=== PATIENT | female | born 1955 | race Caucasian/White ===

== ENCOUNTER 2017-03-31 08:26 | Emergency (ER) | payer OTHER ==
[2017-03-31 08:38] VITALS: BP 136/95; PULSE 68; RESP 20; TEMP 97.7; O2SAT 94
[2017-03-31] MEDS ORDERED: IBUPROFEN 600 MG TAB PO ONE (09:15)
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
== END 2017-03-31 11:07 | disposition home or self-care (01) ==
DX: S09.90XA Unspecified injury of head, initial encounter (principal); S60.222A Contusion of left hand, initial encounter; S16.1XXA Strain of muscle, fascia and tendon at neck level, initial encounter; M62.830 Muscle spasm of back; V49.29XA Unspecified car occupant injured in collision with other motor vehicles in nontraffic accident, initial encounter
CPT/HCPCS: L3908

== ENCOUNTER 2018-06-27 12:03 | Observation (INO) | payer OTHER ==
[2018-06-27 13:16] LABS: PLATELET COUNT 251 10^3/uL (150-400)
[2018-06-27] MEDS ORDERED: NS 500 ML IV ONE (13:46)
--- NOTE | 2018-06-27 13:55 | EDPHY ---
H & P Time Seen by Provider: 06/27/18 13:31 HPI/ROS: CHIEF COMPLAINT: Syncope HISTORY OF PRESENT ILLNESS: Patient is a 62-year-old female with a history of vertigo in here issues who presents emergency department after having a syncopal episode x3. Patient was at work when she felt as though she may pass out. Her coworkers lowered her to the floor with no trauma. Again when she got up she had another syncopal episode. She was again lowered to the floor thought trauma. Patient's family came to pick her up and she again had a syncopal episode. She had no trauma. Patient denies any headache. She has been having weakness earlier today. No chest pain. No cough or shortness of breath. No focal weakness or numbness. Patient does report hot flashes for which she has seen a nail technician teacher recently. It was recommended by her ENT doctor to have an MRI for ongoing dizziness. REVIEW OF SYSTEMS: 10 systems were reveiwed and are negative with the exception of the elements mentioned in the history of present illness. Past Medical/Surgical History: Includes hearing loss, vertigo, possible TIA Past surgical history: Orthopedic surgery Social history: The patient smokes marijuana. Smoking Status: Never smoked Physical Exam: Vitals noted GENERAL: Well-appearing, in no acute distress, alert. HEENT: Eyes normal to inspection, normal pharynx, no signs of dehydration. Decreased hearing. NECK: Normal, supple. RESPIRATORY: Clear to auscultation bilaterally, no rales, rhonchi or wheezing. CVS: Regular rate and rhythm, no rubs, murmurs, or gallops. ABDOMEN: Soft, nontender, nondistended, no organomegaly. BACK: Normal to inspection, no CVA tenderness. SKIN: Normal color, no rash, warm, dry. No pallor. EXTREMITIES: No pedal edema, no calf tenderness, no Homans sign or cords, no joint swelling. NEURO/PSYCH: Higher functions: Alert and Oriented x3. Normal speech and cognition. Normal mood and affect. Cranial nerves: Normal as tested. Cerebellar: Normal as tested. Good finger to nose, good [id number], normal gait. Peripheral exam: Normal motor exam. Normal sensation. Normal reflexes. Constitutional: Initial Vital Signs Temperature (C) 36.6 C 06/27/18 12:11 Heart Rate 62 06/27/18 12:11 Respiratory Rate 18 06/27/18 12:11 Blood Pressure 153/94 H 06/27/18 12:11 O2 Sat (%) 93 06/27/18 12:11 O2 Delivery Mode Room Air Allergies/Adverse Reactions: No Known Allergies Allergy (Verified 06/27/18 12:05) Home Medications: Medication Instructions Recorded Hydrocodone/APAP 5/325 [[place] 1 tab PO Q4H PRN #7 tab 03/31/17 5/325] Medical Decision Making - Diagnostics Imaging Results: Imaging Impressions Head CT 06/27/18 13:46 Impression: 1. No acute intracranial process. 2. Dental disease with periapical cavities in the maxillary molars. 3. Paranasal sinus disease. Findings and recommendations discussed with ACE MERRITT at 1427 hour, . ED Course/Re-evaluation: The in the emergency department I discussed possible etiologies with the patient. I answered all her questions. IV was placed. Laboratory studies were pain. Patient was given normal saline 500 mL IV for hydration. EKG and head CT were ordered. I discussed this with the patient and she consented. The CBC and chemistry unremarkable. EKG shows normal sinus rhythm, normal rate, normal axis, normal intervals. There are no ST or T-wave abnormalities. EKG is normal as interpreted by me. Head CT: Please refer the dictated report. There is no intracranial process causing syncope. Sinus disease. I discussed plan with the patient and answered all her questions. She agrees with the plan. I discussed the case with Dr. Michelle Crawford. She will admit the patient. Differential Diagnosis: My differential includes but not limited to ACS, acute NM, dysrhythmia, electrolyte abnormality, sugar abnormality, dehydration, ischemic CVA, hemorrhagic CVA, dissection, aneurysm, vertigo - Data Points Laboratory Results: Laboratory Results 06/27/18 12:40 06/27/18 12:40 06/27/18 06/27/18 12:40 12:40 WBC 9.33 10^3/uL 10^3/uL (3.80-9.50) RBC 4.87 10^6/uL 10^6/uL (4.18-5.33) Hgb 15.6 g/dL g/dL (12.6-16.3) Hct 46.0 % % (38.0-47.0) MCV 94.5 fL fL (81.5-99.8) MCH 32.0 pg pg (27.9-34.1) MCHC 33.9 g/dL g/dL (32.4-36.7) RDW 12.1 % % (11.5-15.2) Plt Count 251 10^3/uL 10^3/uL (150-400) MPV 10.1 fL fL (8.7-11.7) Neut % (Auto) 55.1 % % (39.3-74.2) Lymph % (Auto) 36.9 % % (15.0-45.0) [place] % (Auto) 5.9 % % (4.5-13.0) Eos % (Auto) 1.3 % % (0.6-7.6) Baso % (Auto) 0.5 % % (0.3-1.7) Nucleat RBC Rel Count 0.0 % % (0.0-0.2) Absolute Neuts (auto) 5.14 10^3/uL 10^3/uL (1.70-6.50) Absolute Lymphs (auto) 3.44 10^3/uL H 10^3/uL (1.00-3.00) Absolute Monos (auto) 0.55 10^3/uL 10^3/uL (0.30-0.80) Absolute Eos (auto) 0.12 10^3/uL 10^3/uL (0.03-0.40) Absolute Basos (auto) 0.05 10^3/uL 10^3/uL (0.02-0.10) Absolute Nucleated RBC 0.00 10^3/uL 10^3/uL (0-0.01) Immature Gran % 0.3 % % (0.0-1.1) Immature Gran # 0.03 10^3/uL 10^3/uL (0.00-0.10) Sodium 139 mEq/L mEq/L (135-145) Potassium 4.2 mEq/L mEq/L (3.5-5.2) Chloride 110 mEq/L mEq/L (97-110) Carbon Dioxide 22 mEq/l mEq/l (22-31) Anion Gap 7 mEq/L mEq/L (6-14) BUN 12 mg/dL mg/dL (7-23) Creatinine 0.9 mg/dL mg/dL (0.6-1.0) Estimated GFR > 60 Glucose 87 mg/dL mg/dL (70-100) Calcium 9.4 mg/dL mg/dL (8.5-10.4) Medications Given: Discontinued Medications Sodium Chloride (Ns) 500 mls @ 1,000 mls/hr IV EDNOW ONE PRN Reason: Protocol Stop: 06/27/18 14:15 Last Admin: 06/27/18 13:53 Dose: 500 mls Departure - Departure Disposition: [facility] Inpatient Acute Clinical Impression: Syncope Qualifiers: Syncope type: unspecified Qualified Code(s): R55 - Syncope and collapse Condition: Good Instructions: Syncope (ED) Referrals: NONE *PRIMARY CARE P,. [Primary Care Provider] - As per Instructions
[2018-06-27] MEDS ORDERED: HYDROCODONE/APAP 5/325 TAB PO PRN (15:52)
[2018-06-27] MEDS ORDERED: LORazepam 0.5 MG TAB PO PRN (15:52)
[2018-06-27] MEDS ORDERED: HYDROmorphONE/DILAUDID 1 MG/ML INJ IVP PRN (15:52)
[2018-06-27] MEDS ORDERED: LORazepam 2 MG/ML INJ IVP PRN (15:52)
[2018-06-27] MEDS ORDERED: oxyCODONE IR 5 MG TAB PO PRN (15:52)
[2018-06-27] MEDS ORDERED: ONDANSETRON 4 MG/2 ML VIAL IVP PRN (15:52)
[2018-06-27] MEDS ORDERED: ACETAMINOPHEN 325 MG TAB PO PRN (15:52)
[2018-06-27] MEDS ORDERED: ONDANSETRON DISINTEGRATING 4 MG TAB PO PRN (15:52)
[2018-06-27] MEDS ORDERED: PROMETHAZINE HCL 25 MG/ML INJ IVP PRN (15:52)
--- NOTE | 2018-06-27 16:57 | PDGENHP ---
History and Physical - Chief Complaint syncope - History of Present Illness 62 yo F with PMH that includes TIA and hearing loss, tinnitus and recurrent vertigo being worked up at ENT who presents with 3 syncopal episodes today. 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 A coworker apparently caught her. She had a second syncopal episode in similar circumstances at work shortly after and then a third when her boyfriend came to get her and was walking her out. She did not have any injuries with any of these episodes. She has had a syncopal episode previously many years ago worked up at another hospital she believes. She has other health complaints recently that she has not sought care for as she has financial concerns around her health care. She has been having worsening balance issues, that she in part relates to her vertigo and tinnitus but sounds like it is always there whether the vertigo is present or not. She has been having progressive hearing loss and has been worked up by ENT for possible Meniere's and has been asked to get both a brain MRI and a neurology consult but has not done that due to finances. She also reports several episodes per day of 'hot flashes' which she describes as getting very hot, very sweaty. She has these episodes at night and soaks the bed with sweat. This happens every day, several times a day. She states she was seen by [employer] who told her that her hormone levels were normal and they were not sure why she is having hot flashes/sweats. She has lost 30 pounds in the last 8 months, but at least some was intentional and some was related to sxs she was having prior to having her GB removed . History Information - Allergies/Home Medication List Allergies/Adverse Reactions: No Known Allergies Allergy (Verified 06/27/18 12:05) Home Medications: NK [No Known Home Meds] 06/27/18 [Last Taken Unknown] I have personally reviewed and updated: family history, medical history, social history, surgical history - Past Medical History TIA Additional medical history: vertigo. tinnitus. hearing loss. gait instability - Surgical History Reports: cholecystectomy Additional surgical history: ankle surgery. appy - Family History Positive for: non-pertinent (unknown--patient adopted) - Social History Smoking Status: Never smoked Alcohol Use: None Drug Use: Marijuana (daily) Review of Systems Review of Systems: ROS: 10pt was reviewed & negative except for what was stated in HPI & below Physical Exam Physical Exam: Temp Pulse Resp BP Pulse Ox 36.8 C 70 16 120/101 H 94 06/27/18 16:28 06/27/18 16:28 06/27/18 16:28 06/27/18 16:28 06/27/18 16:28 Constitutional: no apparent distress, appears nourished Eyes: PERRL, anicteric sclera Ears, Nose, Mouth, Throat: moist mucous membranes, hearing normal Cardiovascular: regular rate and rhythym, no murmur, rub, or gallop, No edema Respiratory: no respiratory distress, no rales or rhonchi Gastrointestinal: normoactive bowel sounds, soft, non-tender abdomen Genitourinary: no bladder tenderness Skin: warm, normal color Musculoskeletal: full muscle strength, no muscle tenderness Neurologic: AAOx3, CN II-XII Intact, No weakness, No numbness Psychiatric: interacting appropriately, not anxious, not encephalopathic Lab Data & Imaging Review 06/27/18 12:40 06/27/18 12:40 WBC 9.33 10^3/uL (3.80-9.50) 06/27/18 12:40 RBC 4.87 10^6/uL (4.18-5.33) 06/27/18 12:40 Hgb 15.6 g/dL (12.6-16.3) 06/27/18 12:40 Hct 46.0 % (38.0-47.0) 06/27/18 12:40 MCV 94.5 fL (81.5-99.8) 06/27/18 12:40 MCH 32.0 pg (27.9-34.1) 06/27/18 12:40 MCHC 33.9 g/dL (32.4-36.7) 06/27/18 12:40 RDW 12.1 % (11.5-15.2) 06/27/18 12:40 Plt Count 251 10^3/uL (150-400) 06/27/18 12:40 MPV 10.1 fL (8.7-11.7) 06/27/18 12:40 Neut % (Auto) 55.1 % (39.3-74.2) 06/27/18 12:40 Lymph % (Auto) 36.9 % (15.0-45.0) 06/27/18 12:40 [place] % (Auto) 5.9 % (4.5-13.0) 06/27/18 12:40 Eos % (Auto) 1.3 % (0.6-7.6) 06/27/18 12:40 Baso % (Auto) 0.5 % (0.3-1.7) 06/27/18 12:40 Nucleat RBC Rel Count 0.0 % (0.0-0.2) 06/27/18 12:40 Absolute Neuts (auto) 5.14 10^3/uL (1.70-6.50) 06/27/18 12:40 Absolute Lymphs (auto) 3.44 10^3/uL (1.00-3.00) H 06/27/18 12:40 Absolute Monos (auto) 0.55 10^3/uL (0.30-0.80) 06/27/18 12:40 Absolute Eos (auto) 0.12 10^3/uL (0.03-0.40) 06/27/18 12:40 Absolute Basos (auto) 0.05 10^3/uL (0.02-0.10) 06/27/18 12:40 Absolute Nucleated RBC 0.00 10^3/uL (0-0.01) 06/27/18 12:40 Immature Gran % 0.3 % (0.0-1.1) 06/27/18 12:40 Immature Gran # 0.03 10^3/uL (0.00-0.10) 06/27/18 12:40 Sodium 139 mEq/L (135-145) 06/27/18 12:40 Potassium 4.2 mEq/L (3.5-5.2) 06/27/18 12:40 Chloride 110 mEq/L (97-110) 06/27/18 12:40 Carbon Dioxide 22 mEq/l (22-31) 06/27/18 12:40 Anion Gap 7 mEq/L (6-14) 06/27/18 12:40 BUN 12 mg/dL (7-23) 06/27/18 12:40 Creatinine 0.9 mg/dL (0.6-1.0) 06/27/18 12:40 Estimated GFR > 60 06/27/18 12:40 Glucose 87 mg/dL (70-100) 06/27/18 12:40 Calcium 9.4 mg/dL (8.5-10.4) 06/27/18 12:40 Total Bilirubin 0.4 mg/dL (0.1-1.4) 06/27/18 12:40 Conjugated Bilirubin 0.2 mg/dL (0.0-0.5) 06/27/18 12:40 Unconjugated Bilirubin 0.2 mg/dL (0.0-1.1) 06/27/18 12:40 AST 23 IU/L (14-46) 06/27/18 12:40 ALT 28 IU/L (9-52) 06/27/18 12:40 Alkaline Phosphatase 93 IU/L (38-126) 06/27/18 12:40 Lactate Dehydrogenase 620 IU/L (313-618) H 06/27/18 12:40 Troponin I 0.013 ng/mL (0.000-0.034) 06/27/18 12:40 Total Protein 7.3 g/dL (6.3-8.2) 06/27/18 12:40 Albumin 4.4 g/dL (3.5-5.0) 06/27/18 12:40 Visualized and Interpreted imaging results: Yes Interpretation: head CT: no acute findings Visualized and Interpreted EKG results: Yes EKG Interpretation: Positive for: normal sinsus rhythm Assessment & Plan Assessment: Syncope (Acute) 62 yo F with PMH of hearing loss, vertigo, balance issues and prior TIA presenting with syncope x 3 # syncope: with several back to back events, per patient all without warning and all without injury. Unusual history, initial w/u normal however patient with multiple complaints of chronic issues that are of uncertain etiology. Will monitor on tele, serial trops and echocardiogram in the am. # gait instability/vertigo/hearing loss/taste change: patient with a series of complaints that have been worked up partially by ENT, their records were reviewed, they have had concerns for menieres versus other primary neurologic issue and have recommended brain MRI and neuro consult as next diagnostic steps which we will obtain in house. Will ask for pt/ot to evaluate for safety with ambulation. # 'hot flashes'/night sweats: patient describing daily to several time per day episodes of soaking hot flashes and night sweats, has had some associated weight loss, ? undiagnosed malignancy versus endocrine or infectious disorder versus neurologic as above versus anxiety. Has been seen by RN IMMUNOLOGY, reviewed reports, sounds as if this is not related with post menopausal sxs per their evaluation. No other suggestion of subacute infection and patient denies risk factors for TB/HIV. Pheo or carcinoid tumor could be consideration, but no report of headache or diarrhea. Will check LDH, TSH, CXR and place a TB test. Monitor for fever with symptoms. Depending on initial w/u could consider further IP testing versus defer to op f/u (her follow up has been poor however0 # hx of TIA # observation status Patient new to my care. Old records reviewed and summarized as above. Care plan reviewed with ER doctor as above.
[2018-06-27] MEDS ORDERED: TUBERCULIN (PPD) 5 TU/0.1 ML SYRINGE ID ONE (17:24)
--- NOTE | 2018-06-27 20:51 | CPEKG ---
Test Reason : OPEN Blood Pressure : / mmHG Vent. Rate : 064 BPM Atrial Rate : 064 BPM P-R Int : 221 ms QRS Dur : 097 ms QT Int : 418 ms P-R-T Axes : -12 009 047 degrees QTc Int : 432 ms Sinus rhythm Prolonged FL interval Abnormal R-wave progression, early transition Confirmed by Natalie Oates ([id number]) on 06/27/2018 8:51:24 PM Referred By: Confirmed By:Natalie Oates
[2018-06-27] MEDS ORDERED: GADOBUTROL 10 ML VIAL IVP ONE (21:15)
[2018-06-28 05:10] LABS: PLATELET COUNT 232 10^3/uL (150-400)
--- NOTE | 2018-06-28 09:31 | HOSPPROG ---
Hospitalist Progress Note Assessment/Plan: 62 yo F with PMH of hearing loss, vertigo, balance issues and prior TIA presenting with syncope x 3. Reviewed her care w Dr Mcdermott. # syncope -reviewed quality assurance intern, she has been in sinus rhythm -trop negative -echo pending -orthostatics stable # gait instability -MRI shows nothing acute -has been seen by ENT- ? Mnire's -neurology didn't note anything acute -PT and OT to see *hot flashes, night sweats -could get further w/u for carcinoid or pheo (MRI doesn't indicate this) -post menopausal symptoms could be causing this, she has seen ADMINISTRATIVE SUPPORT SPECIALIST who says this is unlikely -TB skin test ordered and pending -TSH stable at 1.7 -LDH is minimally elevated *hx of TIA *plan: f/u with Echo, will give her names for a PCP and for a learning support specialist to f/u with Subjective: Laureen is very concerned about the persistent flushing and sweating. Objective: Vital Signs Temp Pulse Resp BP Pulse Ox 36.6 C 66 16 137/84 H 95 06/28/18 07:58 06/28/18 07:58 06/28/18 07:58 06/28/18 07:58 06/28/18 07:58 Laboratory Results 06/28/18 04:50 06/28/18 04:50 - Physical Exam Constitutional: no apparent distress, uncomfortable Eyes: PERRL Ears, Nose, Mouth, Throat: hearing normal Cardiovascular: regular rate and rhythym Respiratory: no respiratory distress Gastrointestinal: normoactive bowel sounds Skin: warm, other (flushed) Musculoskeletal: full muscle strength Neurologic: AAOx3 Psychiatric: interacting appropriately ICD10 Worksheet Patient Problems: Problems Problem Status Onset Syncope Acute
[2018-06-28 12:04] VITALS: BP 130/76
--- NOTE | 2018-06-28 13:24 | ECHO ---
[email or web address] [address] [address] Main: [phone] Fax: Transthoracic Echocardiogram Name: MAGALI ANDRADE MR#: [id number] Study Date: 06/28/2018 Study Time: 10:40 AM Date of : 1955 Age: 62 year(s) Height: 160 cm (63 in.) Weight: 81.65 kg (180 lb.) BSA: 1.85 m2 Gender: Female Examination: Echo Indication: Recurrent Syncope Image Quality: Contrast: Requested by: Michelle Crawford BP: 137 mmHg/84 mmHg Heart Rate: Rhythm: Normal sinus rhythm Indication: Recurrent Syncope Procedure Staff Door Captain: Terrell Milner RDCS Reading Physician: Jorge Stinson MD Requesting Provider: Conclusions: Normal size left ventricle. Normal global systolic LV function. EF is 77 %. No regional wall motion abnormality. Normal diastolic LV function. There are no significant valvular abnormalities. Measurements: Chambers Valvular Assessment AV/MV Valvular Assessment TV/PV Normal Normal Normal Name Value Range Name Value Range Name Value Range Ao Juliet (MM): 2.5 cm (2.2 cm-3.7 AV Vmax: 1.37 m/s (1 m/s-1.7 PV Vmax: 1.05 m/s (0.6 m/s-0.9 cm) m/s) m/s) IVSd (2D): 0.8 cm (0.6 cm-1.1 AV maxP mmHg ( - ) PV PGmax: 4 mmHg ( - ) cm) LVOT Vmax: 0.97 m/s (0.7 m/s-1.1 LVDd (2D): 4.9 cm (3.9 cm-5.3 m/s) cm) MV E Vmax: 0.63 m/s ( - ) LVDs (2D): 2.6 cm (2.1 cm-4 MV A Vmax: 0.80 m/s ( - ) cm) MV E/A: 0.79 ( - ) LVPWd (2D): 0.9 cm ( - ) LVEF (2D): 77 (>=54 %) RVDd(2D): 2.4 cm (1.9 cm-3.8 cmmm) Continued Measurements: Chambers Valvular Assessment AV/MV Name Value Name Value LADs Lon.0 cm MV E' Septal: 0.05 m/s LA Area: 11.7 cm2 MV E/E' Septal: 11.90 Patient: MAGALI ANDRADE Study Date: 06/28/2018 Page 1 of 2 10:40 AM LA Volume: 36 ml MV E/E' Lateral: 8.90 LA Volume Index: 19.5 ml/m2 Findings: Left Ventricle: Normal size left ventricle. No LV hypertrophy. Normal global systolic LV function. EF is 77 %. No regional wall motion abnormality. Normal diastolic LV function. Right Ventricle: Normal size right ventricle. Normal RV function. Left Atrium: The left atrium is normal in size. Right Atrium: The right atrium is normal in size. Mitral Valve: The mitral valve is normal in appearance and function. There is no mitral valve regurgitation. Aortic Valve: The aortic valve is normal in appearance and function. The aortic valve is tri-leaflet. Tricuspid Valve: The tricuspid valve appears normal. Pulmonic Valve: The pulmonic valve is normal in appearance and function. Aorta: The aorta is normal. Pericardium: No pericardial effusion. (No Signature Object) Patient: MAGALI ANDRADE Study Date: 06/28/2018 Page 2 of 2 10:40 AM [id number]
--- NOTE | 2018-06-28 15:57 | GDS ---
DISCHARGE DIAGNOSES: 1. Syncopal events. 2. Gait instability. 3. Severe hot flashes and night sweats. 4. History of transient ischemic attack. CONSULTATION DURING HER STAY: Dr. Gil Mcdermott. HISTORY OF PRESENT ILLNESS: Briefly, the patient is a 62-year-old woman who has a history of TIA, he aring loss, tinnitus, and recurrent vertigo. She has had a workup by ENT, who thought she most likel y had Meniere. She presented with 3 syncopal episodes. First one occurred at work while she was in the kitchen. She said she lost consciousness. Then she had a second one shortly after that, and the n a third. She did not have any injuries due to this. She has not sought any medical care because o f financial concerns around her health. She has been having worsening balance issues. ENT recommend ed that she get a brain MRI and a neurology consult be done while she was here. She was seen and linda luated by Dr. Mcdermott, who noted that this was not anything acute. An MRI was performed, which aleta wed nothing acute. During her stay, she did become lightheaded. She has suffered from multiple hot flashes. In talking with her, this has been going on since last August, and they get severe and un controlled. The plan is for her to be discharged. Will have her get further workup with a primary c are doctor, whom she does not have. Recommended that she consider getting further workup for postmen opausal symptoms versus a possible diagnosis of carcinoid. She is feeling good about the plan and wo uld like to be discharged today. HOSPITAL COURSE: 1. Syncope. I reviewed the avionics systems engineer. She has been in sinus. Troponins negative. Orthost atics are stable. Echocardiogram shows no LV hypertrophy. EF is 77%. No regional wall motion abnor mality is noted. She has normal RV function. Her boyfriend is at the bedside. He will stay with he r to make sure she does not have any further episodes of syncope. 2. Gait instability. MRI shows nothing acute. I suspect part of this is Meniere's. She gets verti go and then resolves. 3. Hot flashes and night sweats. This could be postmenopausal. TSH is stable at 1.7. LDH is minim ally elevated. Her MRI does not show anything significant. Recommending to get further workup in e outpatient setting to get ruled out for carcinoid or pheo. 4. History of TIA, stable. DISCHARGE CONDITION: Stable. Blood pressure is 130/76, heart rate of 81, respiratory rate of 16, O2 sats on room air 93%. Temperature is 36.7 Celsius. DISCHARGE MEDICATIONS: Please see EMR. DISCHARGE INSTRUCTIONS: 1. To return to the ER if she continues to have ongoing syncopal events. This will be further worke d up. 2. To follow up with Endocrinology to see if they have any other etiologies of these issues. 3. I told her if she feels hot and she feels like she is going to pass out, to sit down and keep col d cloths with ice to place on her neck area. /[id number]/MODL
--- NOTE | 2018-06-29 04:49 | GCON ---
NEUROLOGIC CONSULTATION HISTORY: The patient is a 62-year-old woman, whom I am asked to see in neurologic consultation klaus mederos complaints of some recent worsening of balance and a few episodes of loss of consciousness, and history of Meniere syndrome and recent ENT assessments suggesting she have MRI as well as neurologic assessment. She says that there has been no more loss of consciousness since coming to the hospital. She has mild degrees of disequilibrium at times as well as tinnitus and some progressive hearing lo ss for which she is using hearing aids. This means it is more difficult for her to understand speech because of the poor auditory comprehension. She still functions independently. She also has these peculiar episodes in which she will feel very sweaty or flushed. It can come on spontaneously, but n ot associated with hypertension. The exact source is unclear. PAST MEDICAL HISTORY: TIA. SOCIAL HISTORY: No smoking. Some regular marijuana use. No alcohol. REVIEW OF SYSTEMS: Unremarkable except that noted above. PHYSICAL EXAMINATION: VITAL SIGNS: Blood pressure is 130/76, pulse of 81, respirations 16, temperat ure 36.7. GENERAL: She is alert, lying in the bed, no acute distress. HEENT: Eyes are clear. No nystagmus. Extraocular movements intact. Normal facial sensation and strength. Palate elevates sym metrically. Tongue protrudes midline. MOTOR EXAM: Reveals essentially normal 5/5 strength with no abnormal movement. Sensation is preserved for temperature and light touch. Reflexes 1+ and symmetri c. I reviewed her brain MRI, which is generally unremarkable. No evidence of pituitary pathology. IMPRESSION: Total unit time of 50 minutes. The majority of the visit was counseling and coordinatio n of care with her. I do not think there is a primary neurologic disorder present and feel she shoul d follow up appropriately with ENT, her primary care, and Endocrinology if appropriate. Workup for h er flushing episodes should continue through appropriate primary care guidance to include considerati on of carcinoid syndrome. Otherwise, she does not need neurologic followup. /[id number]/MODL
--- NOTE | 2018-06-29 17:35 | CPEKG ---
Test Reason : OPEN Blood Pressure : / mmHG Vent. Rate : 069 BPM Atrial Rate : 069 BPM P-R Int : 213 ms QRS Dur : 087 ms QT Int : 391 ms P-R-T Axes : -10 012 049 degrees QTc Int : 419 ms Sinus rhythm Borderline prolonged MT interval Confirmed by Ruben Pinon ([id number]) on 06/29/2018 5:35:31 PM Referred By: Confirmed By:Ruben Pinon
== END 2018-06-28 14:38 | disposition home or self-care (01) ==
LOC: F3N 15:07 → F3E 16:19
PROVIDERS: ADMIT Internal Medicine; ATTEND Internal Medicine
DX: R55 Syncope and collapse (principal); R26.9 Unspecified abnormalities of gait and mobility; N95.1 Menopausal and female climacteric states; R61 Generalized hyperhidrosis; Z86.73 Personal history of transient ischemic attack (TIA), and cerebral infarction without residual deficits
CPT/HCPCS: 70450; 70553; 93005; 93306; 96360; 97161; 97166; 97535; 99285; G0378; A9585